=== PATIENT | male | born 1995 | race Caucasian/White ===

== ENCOUNTER 2018-03-23 21:28 | Emergency (ER) | payer OTHER ==
[~2018-03-23] VITALS: Ht 193 cm; Wt 143.6 kg
[2018-03-23 21:43] VITALS: BP 154/85
[2018-03-23] MEDS ORDERED: DIPH,PERTUSS(ACELL),TET VAC/PF 0.5 ML IM-VACC ONE ×3 (22:04→22:30)
--- NOTE | 2018-03-23 22:24 | NUR ---
PT HERE FOR LEFT HAND BITE AFTER SPLITTING HIS DOGS UP WHO WERE FIGHTING OVER FOOD. PT REPORTS THAT THE DOGS ARE UP TO DATE ON VACCINES. DOG WAS TAKEN AWAY BY [facility]. PT WOUNDS DRESSED WITH BACITRACIN AND GAUZE. PT HAD WOUND IRRIGATED COMPLETLEY AT THIS TIME.
--- NOTE | 2018-03-23 22:36 | NUR ---
Patient/Caregiver given discharge instructions and they have confirmed that they understand the instructions. Patient ambulatory with steady gait.
== END 2018-03-23 22:38 | disposition home or self-care (01) ==
LOC: ED 22:05
DX: S60.572A Other superficial bite of hand of left hand, initial encounter (principal); W54.0XXA Bitten by dog, initial encounter; Y93.89 Activity, other specified; Y92.009 Unspecified place in unspecified non-institutional (private) residence as the place of occurrence of the external cause; Y99.8 Other external cause status
CPT/HCPCS: 90471; 90715